=== PATIENT | female | born 1980 | race Caucasian/White ===

== ENCOUNTER 2017-10-24 08:38 | Emergency (ER) | payer OTHER, MEDICAID ==
[~2017-10-24] VITALS: Ht 162.6 cm; Wt 68.0 kg
[2017-10-24 08:43] VITALS: BP 130/96
[2017-10-24] MEDS ORDERED: NORCO 5-325 TA1 EACH PO (09:01)
[2017-10-24] MEDS ORDERED: IBUPROFEN 800800 M1 PO (09:01)
[2017-10-24] MEDS ORDERED: PENICILLIN V P500 MG PO (09:01)
== END 2017-10-24 09:36 | disposition home or self-care (01) ==
LOC: M.ERS 08:38
DX: K02.9 Dental caries, unspecified (principal)